=== PATIENT | female | born 1940 | race Caucasian/White ===

== ENCOUNTER 2019-02-10 12:38 | Emergency (ER) | payer MEDICARE ==
--- NOTE | 2019-02-10 16:54 | ER Document Report ---
ED ENT - General Chief Complaint: Ear Pain Stated Complaint: FACE PAIN Time Seen by Provider: 02/10/19 16:38 Primary Care Provider: SARTHAK SHAH PA-C [Primary Care Provider] - Follow up as needed Mode of Arrival: Ambulatory Information source: Patient Notes: 78-year-old female presented to ED for complaint of pain behind the left ear through the head to behind the left cheek for the last 2 months. She states she went to her primary doctor about 2 weeks ago and they told her that it might be because she is got a muscle strain to her neck. She states she does not believe this is so and she would like a second opinion. She states she was told to go to a chiropractor but she needs to be sure that that is always going on. Patient is alert oriented respirations regular and unlabored speaking in full sentences walks with even steady gait. TRAVEL OUTSIDE OF THE [place] IN LAST 30 DAYS: No - HPI Patient complains to provider of: Other - Pain behind the left ear is through the skull to the behind the left cheek Onset: Other - 2 months Onset/Duration: Persistent Quality of pain: Achy, Sharp Severity: None Pain Level: Denies Location of pain: Ears Associated symptoms: Ear pain - Starts behind her left ear upper part through her skull to behind her left cheek Similar symptoms previously: Yes Recently seen / treated by doctor: Yes - Related Data Allergies/Adverse Reactions: ciprofloxacin [From Cipro] Allergy (Mild, Verified 12/28/18 14:13) RASH Past Medical History - General Information source: Patient - Social History Smoking Status: Former Smoker Frequency of alcohol use: None Drug Abuse: None Lives with: Family Family History: Reviewed & Not Pertinent Patient has suicidal ideation: No Patient has homicidal ideation: No - Past Medical History Cardiac Medical History: Reports: Hx Hypercholesterolemia, Hx Hypertension - MEDICATED, Hx Heart Murmur Pulmonary Medical History: Reports: Hx Pneumonia EENT Medical History: Reports: None Neurological Medical History: Reports: Hx Migraine Endocrine Medical History: Reports: None Renal/ Medical History: Reports: None Malignancy Medical History: Reports: Hx Skin Cancer GI Medical History: Reports: Hx Gastroesophageal Reflux Disease, Hx Colonoscopy, Hx Endoscopy, Other - Hemorrhoids Musculoskeletal Medical History: Reports Hx Musculoskeletal Deformity, Reports Hx Musculoskeletal Trauma Skin Medical History: Reports None Psychiatric Medical History: Reports: None Traumatic Medical History: Reports: Hx Fractures - Arm and wrist Infectious Medical History: Reports: None Past Surgical History: Reports: Hx Appendectomy, Hx Genitourinary Surgery - bladder sling, Hx Tubal Ligation, Other - Hemorrhoidectomy, cataract surgery retinal detachment - Immunizations Immunizations up to date: Yes Review of Systems - Review of Systems Constitutional: No symptoms reported EENT: Ear pain - Pain behind the upper left ear through the skull to the left cheek Cardiovascular: No symptoms reported Respiratory: No symptoms reported Gastrointestinal: No symptoms reported Genitourinary: No symptoms reported Female Genitourinary: No symptoms reported Musculoskeletal: No symptoms reported Skin: No symptoms reported Hematologic/Lymphatic: No symptoms reported Neurological/Psychological: No symptoms reported Physical Exam - Vital signs Vitals: Temp Pulse Resp BP Pulse Ox 97.8 F 57 L 18 148/75 H 94 02/10/19 12:53 02/10/19 12:53 02/10/19 12:53 02/10/19 12:53 02/10/19 12:53 Interpretation: Normal - General General appearance: Appears well, Alert - HEENT Head: Normocephalic, Atraumatic Eyes: Normal Pupils: PERRL Ears: Normal External canal: Normal Tympanic membrane: Normal Sinus: Normal Nasal: Normal Mouth/Lips: Normal Mucous membranes: Normal Pharynx: Normal Neck: Normal - Respiratory Respiratory status: No respiratory distress Chest status: Nontender Breath sounds: Normal Chest palpation: Normal - Cardiovascular Rhythm: Regular Heart sounds: Normal auscultation Murmur: No - Abdominal Inspection: Normal Distension: No distension Bowel sounds: Normal Tenderness: Nontender Organomegaly: No organomegaly - Back Back: Normal, Nontender - Extremities General upper extremity: Normal inspection, Nontender, Normal color, Normal ROM, Normal temperature General lower extremity: Normal inspection, Nontender, Normal color, Normal ROM, Normal temperature, Normal weight bearing. No: George's sign - Neurological Neuro grossly intact: Yes Cognition: Normal Orientation: AAOx4 [place] Coma Scale Eye Opening: Spontaneous Irena Coma Scale Verbal: Oriented [place] Coma Scale Motor: Obeys Commands Irena Coma Scale Total: 15 Speech: Normal Motor strength normal: LUE, RUE, LLE, RLE Sensory: Normal - Psychological Associated symptoms: Normal affect, Normal mood - Skin Skin Temperature: Warm Skin Moisture: Dry Skin Color: Normal Course - Re-evaluation Re-evalutation: 02/11/19 03:05 Discussed physical and history with Dr. Stanford. She stated due to the patient's age to go ahead and get the CT of the head for this continued pain behind the left upper ear and into the face. CT was negative no acute changes. Patient was given an written report as well as a CD of the CT take to her primary doctor and to follow-up with ears nose and throat. Patient was discharged home with instructions to follow-up and to use Tylenol for her pain. Patient verbalized understanding and agreement with treatment plan. - Vital Signs Vital signs: Temp Pulse Resp BP Pulse Ox 97.8 F 56 L 16 172/58 H 95 02/10/19 17:59 02/10/19 17:59 02/10/19 17:59 02/10/19 17:59 02/10/19 17:59 - Diagnostic Test Radiology reviewed: Image reviewed, Reports reviewed Discharge - Discharge Clinical Impression: Pain behind left ear Condition: Stable Disposition: HOME, SELF-CARE Additional Instructions: You were seen today for pain behind the left ear into the face. Your CT was negative I have given you a written report of the CT to follow-up with ears nose and throat. There is no not swelling redness or tenderness to the area that you state you normally have the pain. Please call the ENT doctor tomorrow and schedule follow-up appointment with them. Take your CT results with you please. FOLLOW-UP CARE: If you have been referred to a physician for follow-up care, call the physician s office for an appointment as you were instructed or within the next two days. If you experience worsening or a significant change in your symptoms, notify the physician immediately or return to the Emergency Department at any time for re- evaluation. Forms: Elevated Blood Pressure Referrals: SARTHAK SHAH PA-C [Primary Care Provider] - Follow up as needed
--- NOTE | 2019-02-10 17:50 | RADIOLOGY REPORT (SQ) ---
EXAM DESCRIPTION: CT HEAD WITHOUT COMPLETED DATE/TIME: 02/10/2019 5:01 pm REASON FOR STUDY: pain behind upper ear into face COMPARISON: 10/03/2008 TECHNIQUE: Axial images acquired through the brain without intravenous contrast. Images reviewed wi th bone, brain and subdural windows. Additional sagittal and coronal reconstructions were generated. Images stored on PACS. All CT scanners at this facility use dose modulation, iterative reconstruction, and/or weight based d osing when appropriate to reduce radiation dose to as low as reasonably achievable (ALARA). [facility]: Dose Right [facility]: CareDose [facility]: Dose Right [facility]: Teradose 4D [facility]: Physcient RADIATION DOSE: CT Rad equipment meets quality standard of care and radiation dose reduction techniq ues were employed. CTDIvol: 53.2 mGy. DLP: 937 mGy-cm. mGy. LIMITATIONS: None. FINDINGS: VENTRICLES: Normal size and contour. CEREBRUM: No masses. No hemorrhage. No midline shift. No evidence for acute infarction. Normal gra y/white matter differentiation. No areas of low density in the white matter. CEREBELLUM: No masses. No hemorrhage. No alteration of density. No evidence for acute infarction. EXTRAAXIAL SPACES: No fluid collections. No masses. ORBITS AND GLOBE: No intra- or extraconal masses. Normal contour of globe without masses. CALVARIUM: No fracture. PARANASAL SINUSES: No fluid or mucosal thickening. SOFT TISSUES: No mass or hematoma. OTHER: No other significant finding. IMPRESSION: No acute intracranial pathology. No noncontrast CT finding to explain facial pain. EVIDENCE OF ACUTE STROKE: NO. COMMENT: Quality ID # [id number]: Final reports with documentation of one or more dose reduction techniques (e.g., Automated exposure control, adjustment of the mA and/or kV according to patient size, use of iterative reconstruction technique) TECHNICAL DOCUMENTATION: JOB ID: [id number] [employer]- All Rights Reserved Reading location - IP/workstation name: [email or web address]
[2019-02-10 18:06] VITALS: BP 172/58
== END 2019-02-10 18:08 | disposition home or self-care (01) ==
LOC: ER 12:38
DX: R51 Headache (principal); I10 Essential (primary) hypertension; Z88.1 Allergy status to other antibiotic agents; Z87.891 Personal history of nicotine dependence
CPT/HCPCS: 70450; 99283

== ENCOUNTER → 2019-10-24 | Outpatient (CLI) | payer MEDICARE ==
--- NOTE | 2019-10-24 08:42 | RADIOLOGY REPORT (SQ) ---
EXAM DESCRIPTION: U/S ABDOMEN LIMITED W/O DOP IMAGES COMPLETED DATE/TIME: 10/24/2019 8:30 am REASON FOR STUDY: NAUSEA (R11.0) R11.0 NAUSEA COMPARISON: None. TECHNIQUE: Dynamic and static grayscale images acquired of the abdomen and recorded on PACS. Additio torres selected color Doppler and spectral images recorded. LIMITATIONS: None. FINDINGS: PANCREAS: The visualized portions of the pancreas appear normal. The pancreatic tail is o bscured by overlying bowel. LIVER: The echogenicity of the liver is increased relative to the renal parenchyma. LIVER VASCULATURE: Hepatopetal directional flow within the portal veins. The hepatic veins are paten t. GALLBLADDER: The gallbladder wall measures 1.9 mm in thickness. There is no cholelithiasis, sludge o r pericholecystic fluid. ULTRASOUND-DETECTED MOSS'S SIGN: Negative. INTRAHEPATIC DUCTS AND COMMON DUCT: The common bile duct measures 6 mm in diameter. There is no dila tation of the intrahepatic bile ducts. INFERIOR VENA CAVA: Patent. AORTA: No aneurysm. RIGHT KIDNEY: The right kidney measures 8.9 cm in length. There is no hydronephrosis. PERITONEAL AND RIGHT PLEURAL SPACE: No ascites or effusions. OTHER: No other findings. IMPRESSION: 1. Increased echogenicity of the renal parenchyma. The finding is typical in the settin g of diffuse hepatocellular disease with the most common etiology being hepatic steatosis. 2. Partial visualization of the pancreas. TECHNICAL DOCUMENTATION: JOB ID: [id number] 2010 [employer]- All Rights Reserved Reading location - IP/workstation name: [email or web address]
== END ==
LOC: RAD 07:50
PROVIDERS: ATTEND Internal Medicine Gastroenterology
DX: R11.0 Nausea (principal)
CPT/HCPCS: 76705

== ENCOUNTER → 2020-05-02 | Outpatient (CLI) | payer MEDICARE ==
[~2020-05-02] MED LIST: REGADENOSON INJ 0.4 MG/5 ML DISP.SYRIN IV ONE
--- NOTE | 2020-05-03 19:35 | DRAGON STRESS TEST REPORT ---
Intravenous Lexiscan Cardiolite stress test using single photon emmision computerized tomography. Date of procedure: 05/02/2020 Ordering Provider: Dr. Francisco Javier Hernandez. Patient's status: Out Patient. Indication: Chest pain. Coronary risk factors: Age, hypertension, and dyslipidemia. Resting EKG: Sinus Rhythm. EKG within normal limits. Stress EKG: No changes of ischemia. The patient had no chest pain or shortness of breath or arrhythmias. Reason for termination: Protocol. Conclusions: Normal EKG and hemodynamic response to IV Lexiscan. Nuclear data: At rest the patient was given millicuries of 10 technetium 99m sestamibi injected intravenously. As per protocol rest non gated SPECT images were obtained. Subsequently the patient was given intravenous Lexiscan at a dose of 0.4 mg in 5 mL intravenously, followed by flush with normal saline. Subsequently the stress dose of 32.9 millicuries of technetium 99m sestamibi was injected intravenously. As per protocol stress gated images were obtained. Nuclear interpretation: Review of images showed that all segments of the myocardium had normal perfusion at rest, and normal perfusion post stress with IV Lexiscan. All segments of the myocardium had normal motion, contraction, and thickening by gated study. T. I D. ratio was normal at 1.09. There is no transient ischemic dilatation of the left ventricle. Computer read rest, and stress left ventricular ejection fraction were 67%, and 66%, respectively. . Conclusion: 1. There is no scintigraphic evidence of Lexiscan induced myocardial ischemia. 2. There is no scintigraphic evidence of myocardial infarction/scar. Recommendations: Aggressive risk factor modification, and treating the underlying co- morbidities. MTDD
== END ==
LOC: RAD 07:16
PROVIDERS: ATTEND Internal Medicine
DX: I70.211 Atherosclerosis of native arteries of extremities with intermittent claudication, right leg (principal); I35.0 Nonrheumatic aortic (valve) stenosis; R07.2 Precordial pain; R06.02 Shortness of breath
CPT/HCPCS: 93017; 78452; A9500; J2785; Q9969